=== PATIENT | female | born 1965 | race Two or more races ===

== ENCOUNTER → 2024-11-25 | Outpatient (CLI) | payer MEDICAID ==
[~2024-11-25] VITALS: Ht 157.5 cm; Wt 74.4 kg
[2024-11-25] MEDS: REGADENOSON 0.4 MG/5 ML SYRG IV ONE ×2 (13:03→13:05)
--- NOTE | 2024-11-25 15:03 | DVHSR ---
APPROVED REPORT Exam: Nuclear Stress Test BMI: 0 Stress Test Details HR Max Heart Rate (APMHR): 159.954404 bpm Target HR (85% APMHR): 135.180802 bpm BP ECG Stress ECG Conclusion lvef 68% lvef 71% normal perfusion scan no stress induced ischemia noted NM EXAM: Myocardial Perfusion REST/STRESS Imaging Protocol: Rest Tc-99m/Stress Tc-99m 1 day Resting Data Rest SPECT myocardial perfusion imaging was performed in supine position 60 minutes following the int ravenous injection of 14.5 mCi of Tc-99m Sestamibi. Time of rest injection: 1150 Time of rest imagin Administration Route: IV Administration Site: Right Wrist Pharmacologic Stress Pharmacologic stress test was performed by injecting Regadenoson 0.4 mg IV push followed by the intra venous injection of 31 mCi of Tc-99m Sestamibi. Time of stress injection: 1305 Time of stress imagin Administration Route: IV Administration Site: Right Wrist Gated Stress SPECT was performed 60 minutes after stress injection. The images were gated to evaluate regional wall motion and calculate left ventricular ejection fracti on. Stress only was performed in the Supine position. Nuclear Conclusion Nuclear Findings: negative for ischemia lvef 68% lvef 71% normal perfusion scan no stress induced ischemia noted
== END | disposition home or self-care (01) ==
LOC: XYW 11:26
PROVIDERS: ATTEND Specialist
DX: I10 Essential (primary) hypertension (principal); R07.9 Chest pain, unspecified; E66.9 Obesity, unspecified
CPT/HCPCS: 78452; 93017; A9500; J2785